=== PATIENT | male | born 2000 | race Caucasian/White ===

== ENCOUNTER 2019-10-05 13:53 | Emergency (ER) | payer OTHER, SELFPAY ==
[2019-10-05 13:58] VITALS: BP 130/84; PULSE 72; TEMP 36.4; O2SAT 100
--- NOTE | 2019-10-05 14:10 | ED.GENADUL_ITS ---
Discharge Plan Disposition Patient Disposition: HOME Condition: Stable Discharge Details Chief Complaint: Orthopedic Clinical Impression: Acute foreign body of right lower leg Primary Care Provider: Neal Blevins ED Provider: Andrei Dunn Home Meds and New Rx's Prescriptions: New amoxicillin-pot clavulanate [Augmentin] 875-125 mg tablet 1 tab PO BID Qty: 8 RF: 0 Discharge Instructions Additional Instructions: if you are having limited range of motion of the knee in a week call orthopedics for an appointment if you have spreading redness, severe worsening pain or yellow/white discharge from the wound return to the emergency department you can have 1000mg tylenol and 600mg ibuprofen every 6 hours for pain as needed Medical Decision Making 19 yo male was using a nail gun at home when he accidentally got a nail stuck in his right leg just proximal to the knee and on lateral surface. States it is a 1.5-2 inch nail. Unable to move the knee at all due to pain. Will obtain xray to see where the nail is in regards to bone and reasses. xray confirms nail in the bone. Spoke with Dr. Solorzano who recommended trying to use vice certified medicine aide to get them out. I used 10cc of 2% licodaine around the nail and then use vice certified medicine aide and successfully removed. Spoke with Dr. Solorzano who did not feel ortho f/u needed unless having rom issues with the knee. Will d/c with return precautions Differential Diagnosis Differential Diagnosis: foreign body, fracture Imaging Data Radiologic Study: Attestation: I personally reviewed and interpreted this imaging study as follows: Imaging: X-Ray My impression: foreign body HPI General Mode of arrival: ambulatory . Date/Time Provider Initiated Documentation: 10/05/19 13:54 . Limitations to Documentation: no limitations . Information obtained by: patient . History of Present Illness 19 year old M presents to the emergency department with the chief complaint of nail in right leg, described as moderate, Quality is described as aching, and it has been constant. No relieving factors improve symptom(s), No exacerbating factors reported . Patient did receive the following treatments prior to arrival, none Related Data Home Medications Medication Instructions Recorded Confirmed amoxicillin-pot clavulanate 1 tab PO BID #8 tab 10/05/19 [Augmentin] Previous Rx's Medication Instructions Recorded amoxicillin-pot clavulanate 1 tab PO BID #8 tab 10/05/19 [Augmentin] Allergies Allergy/AdvReac Type Severity Reaction Status Date / Time No Known Allergies Allergy Unverified 10/05/19 14:04 General Stated Complaint: Orthopedic ANTONIO: 3 Review of Systems All systems reviewed & are unremarkable except as noted in HPI and below Constitutional Constitutional: Denies chills, Denies fever(s) and Denies weakness Cardiovascular Cardiovascular: Denies chest pain and Denies dyspnea Respiratory Respiratory: Denies cough and Denies dyspnea Gastrointestinal Gastrointestinal: Denies abdominal pain, Denies nausea and Denies vomiting Musculoskeletal Musculoskeletal: Denies joint swelling Neurologic Neurologic: Denies weakness Psychiatric Psychiatric: Denies depression PFSH Family History Mother No problems noted. Father No problems noted. Brother No problems noted. Grandfather Myocardial infarction paternal Grandmother Myocardial infarction maternal gm Social History Smoking/Tobacco Use Status: Never Drug use: Never Do you feel safe at home: Yes Exam Const General: no acute distress Orientation: alert HENMT Head: normal to inspection Ears: external ears normal General nose exam: external nose normal Mouth: moist mucous membranes Eyes General: appearance normal, both eyes and all related structures Neck Neck: normal visual inspection Resp Effort & Inspection: normal respiratory effort and able to speak in complete sentences Cardio Rate: regular rate Skin General skin exam: no rashes or lesions noted Neuro General: alert and oriented x3 Extrem General: normal capillary refill Psych Mental Status: mental status grossly normal Course Vital Signs Vital signs: Vital Signs Temperature 36.4 C L 10/05/19 13:58 Pulse 72 10/05/19 13:58 Blood Pressure 130/84 10/05/19 13:58 Pulse Oximetry 100 10/05/19 13:58 Temperature 36.4 C L 10/05/19 13:58 Temperature Source Skin 10/05/19 13:58 Pulse 72 10/05/19 13:58 Respiratory Effort 10/05/19 14:03 Blood Pressure 130/84 10/05/19 13:58 Blood Pressure Position Sitting 10/05/19 13:58 Pulse Oximetry 100 10/05/19 13:58 Oxygen Delivery Method Room Air 10/05/19 13:58 Oxygen Flow Rate 0 10/05/19 13:58 Pain Level 2 10/05/19 13:58
--- NOTE | 2019-10-05 15:10 | DI.RAD_ITS ---
EXAM: XR KNEE RT 3V AP,LAT,EVELYNE INDICATION: nail in leg. COMPARISON: No exams were available for comparison TECHNIQUE: 2D digital imaging was performed. FINDINGS: A nail is seen extending into the lateral metaphyseal region of the distal femur. No fracture or mary nt effusion is seen. The joint spaces are well maintained. IMPRESSION: Nail is seen in the distal femoral metaphysis. DATA REPOSITORY: RADIATION DOSE DELIVERED:
[2019-10-05] MEDS: Lidocaine 2% Multi-Dose 20 ML VIAL IJ (15:32)
[2019-10-05 16:01] VITALS: BP 130/84; PULSE 72; TEMP 36.4; O2SAT 100
== END 2019-10-05 16:00 | disposition home or self-care (01) ==
LOC: ER 17:37
PROVIDERS: Emergency Provider Emergency Medicine; PCP Family Medicine
DX: S80.851A Superficial foreign body, right lower leg, initial encounter (principal); W45.0XXA Nail entering through skin, initial encounter
CPT/HCPCS: 73562; 90471; 99284; 99283; J3490

== ENCOUNTER 2019-12-30 20:51 | Emergency (ER) | payer OTHER, SELFPAY ==
[2019-12-30 20:56] VITALS: BP 160/77; PULSE 100; RESP 16; TEMP 37; O2SAT 96
[2019-12-30 21:01] VITALS: BP 136/75
--- NOTE | 2019-12-30 21:15 | ED.GENADUL_ITS ---
Discharge Plan Disposition Patient Disposition: HOME Condition: Good Discharge Details Chief Complaint: Laceration Clinical Impression: Laceration of left hand Primary Care Provider: Neal Blevins ED Provider: Dru Baldwin Home Meds and New Rx's Prescriptions: No Action No Known Home Meds RF: 0 Discharge Instructions Instructions: Care For Your Stitches (ED), Laceration (ED) Additional Instructions: Please leave the dressing on for 24 hours, then you may remove and begin cleaning the wound at least twice a day with soap and water. Continue to apply antibiotic ointment. Do not directly soak the area. Watch for any signs of infection and return if any increasing redness, swelling, pain, drainage. Your sutures should come out in the next 7 to 10 days. If you notice any worsening of your symptoms, or any new symptoms such as vomiting, diarrhea, fever, chills, shortness of breath, chest pain, numbness, weakness, or fainting , please return immediately to the emergency department for reevaluation. Please follow up with your primary care provider as soon as possible for reassessment and reevaluation. As always, it was a pleasure participating in your medical care today. Referrals: Neal Blevins. [Primary Care Provider] - Medical Decision Making 19-year-old male who is right-hand dominant presents with a laceration to his left hand that he got when he was using a brand-new hand saw. Nonelectrical. Patient states that he slipped, and cut the dorsal aspect of his hand. He denies any associated numbness tingling or weakness. He is not on any blood thinners. He states that he wanted to use glue but his mother who is a pharmacist recommended against that noted, and to get it evaluated. Patient has no other complaints at this time. No other modifying factors, tetanus is updated within the last year secondary to another musculoskeletal laceration injury. Exam demonstrates a 5 cm linear laceration with dermal and epidermal involvement no significant subcutaneous involvement involving the tendons. A layer of connective tissue is still present between the skin and the tendons. No evidence of deep laceration. Normal neurovascular exam, normal flexion and extension strength, 5 simple interrupted 4-0 Ethilon sutures were placed, good wound edge approximation noted. Patient tolerated procedure well. Patient will be discharged with close follow-up. Discussed red flags which to return. I have extensively reviewed the treatment plan and discharge instructions with the patient. I have addressed all patient concerns at this time. The patient was made aware of what symptoms to monitor for that would warrant a return to the emergency department. Discussed the plan with the patient, they demonstrate verbal understanding and agreement with our assessment and plan at this time. HPI General Date/Time Provider Initiated Documentation: 12/30/19 20:52 . HPI Narrative: 19-year-old male who is right-hand dominant presents with a laceration to his left hand that he got when he was using a brand-new hand saw. Nonelectrical. Patient states that he slipped, and cut the dorsal aspect of his hand. He denies any associated numbness tingling or weakness. He is not on any blood thinners. He states that he wanted to use glue but his mother who is a pharmacist recommended against that noted, and to get it evaluated. Patient has no other complaints at this time. No other modifying factors, tetanus is updated within the last year secondary to another musculoskeletal laceration injury. Related Data Home Medications Medication Instructions Recorded Confirmed Unknown [No Known Home Meds] 12/30/19 12/30/19 Allergies Allergy/AdvReac Type Severity Reaction Status Date / Time No Known Allergies Allergy Unverified 12/30/19 20:59 General Stated Complaint: Laceration ANTONIO: 4 Review of Systems All systems reviewed & are unremarkable except as noted in HPI and below PFSH Medical History No acute medical problems (Acute) Family History Mother No problems noted. Father No problems noted. Brother No problems noted. Grandfather Myocardial infarction paternal Grandmother Myocardial infarction maternal Social History Smoking/Tobacco Use Status: Current every day Tobacco Type: smokeless tobacco Alcohol Intake: never Drug use: Never Substance use type: does not use Do you feel safe at home: Yes Do you feel safe in your relationship?: Yes Exam Narrative Exam Narrative: 1.Const: Well-nourished, Well-developed, appearing stated age 2.Eyes: PERRL, no conjunctival injection, and symmetrical lids. 3.ENT: Atraumatic external nose and ears. Moist MM. Neck: Symmetric, trachea midline, No thyromegaly. 4.CVS: +S1/S2, No murmurs or gallops. Peripheral pulses 2+ and equal in all extremities. Brisk capillary refill in all extremities. 5.RESP: Unlabored respiratory effort. Clear to auscultation bilaterally. No wheezes rales or rhonchi 6.GI: Soft, Nontender/Nondistended, No hepatosplenomegaly. No guarding or rebound. 7.MSK: Normocephalic/Atraumatic, Extremities w/o deformity or ttp No cyanosis or clubbing, Normal movement of all extremities. Left hand: Symmetrically palpable radial and ulnar pulses. Capillary refill less than 2 seconds to all digits. Intact sensation to light touch of the radial, median and ulnar nerves demonstrated by testing in the dorsal web space of the thumb, the distal palmar aspect of the index finger, and the lateral surface of the fifth finger. 2 point discrimination intact to 5mm (up to 6mm can be normal in digits 3-5) of discrimination in the affected digit. Intact motor function of the radial, median and ulnar nerves demonstrated by strength of extension of the isolated distal joint of the index finger, hand night monitor, and spreading of the 2nd through 5th digits. Intact recurrent median nerve as demonstrated by ability to move thumb fully through opposition, abduction and flexion. No snuffbox tenderness. 8.Skin: Warm, Dry. 5 cm laceration present over the dorsal aspect of the left hand. Linear laceration, extending from the mid center of the hand out laterally. Dermis and epidermis are lacerated, however subcutaneous layer appears intact. No evidence of tendon involvement. Minimal active oozing of blood. Patient demonstrates good neurovascular exam and strength exam distal to the injury site. 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 Sensation grossly intact, no focal neurologic deficits. 10.Psych: (AAO) x3. Appropriate mood and affect Course Vital Signs Vital signs: Vital Signs Temperature 37.0 C 12/30/19 20:56 Pulse 100 H 12/30/19 20:56 Respiratory Rate 16 12/30/19 20:56 Blood Pressure 160/77 H 12/30/19 20:56 Pulse Oximetry 96 12/30/19 20:56 Temperature 37.0 C 12/30/19 20:56 Temperature Source Skin 12/30/19 20:56 Pulse 100 H 12/30/19 20:56 Respiratory Rate 16 12/30/19 20:56 Respiratory Effort Non-Labored 12/30/19 20:59 Blood Pressure 136/75 12/30/19 21:01 Pulse Oximetry 96 12/30/19 20:56 Pain Level 0 12/30/19 20:56 Procedures Laceration Laceration 1: Site: hand Side (If applicable): left Size (cm): 5 Description: linear Depth: simple, single layer Local Anesthetic: Lidocaine 1% Amount of anesthesia used (mL): 5 Pre-repair: wound explored, irrigated extensively and deep structures intact Skin layer closed with: nylon Size (cm): 4-0 Number of sutures: 5 Technique: simple, interrupted
== END 2019-12-30 21:25 | disposition home or self-care (01) ==
LOC: ER 21:24
PROVIDERS: Emergency Provider Student in an Organized Health Care Education/Training Program; PCP Family Medicine
DX: S61.412A Laceration without foreign body of left hand, initial encounter (principal); W27.0XXA Contact with workbench tool, initial encounter
CPT/HCPCS: 12002

== ENCOUNTER 2021-03-07 09:46 | Emergency (ER) | payer OTHER, SELFPAY ==
[2021-03-07 09:50] VITALS: BP 156/64; PULSE 65; RESP 16; TEMP 37; O2SAT 97
--- NOTE | 2021-03-07 09:55 | ED.GENADUL_ITS ---
Discharge Plan Disposition Patient Disposition: HOME Condition: Stable Discharge Details Clinical Impression: Otitis externa Primary Care Provider: Neal Blevins ED Provider: Emma Mclaughlin Home Meds and New Rx's Prescriptions: New Cipro HC 0.2-1 % drops,suspension 3 drp otic (ear) BID 7 Days Qty: 10 RF: 0 Continued amoxicillin 875 mg tablet 875 mg PO BID Qty: 14 RF: 0 Discharge Instructions Instructions: Otitis Externa (ED) Additional Instructions: Your exam is most concerning for an external ear infection. Please encourage hydration. You may continue with Tylenol and ibuprofen as needed for discomfort. Please instill 3 drops into the left ear twice per day for the next 7 days of the prescribed medication. When you put these in, please try to keep the left ear up for approximately 10 to 15 minutes after instilling the drops. If you develop fever/chills, increased pain or other new/worsening symptoms please seek care urgently once again. Otherwise, please follow-up with your primary care in 1-2 week for reevaluation. Referrals: Neal Blevins. [Primary Care Provider] - Discharge Data Discharge Date/Time-TO BE ENTERED AT DEPARTURE: 03/07/21 10:07 Medical Decision Making Patient is a pleasant 21 year old male presenting today with c/c of left ear pain. States that it started more mildly a week ago. He was seen for routine care by his PCP on Tuesday. Physician noted findings concerning of rpossible otitis media. Following day, he began amoxicillin. Despite this, he states his hearing has diminished and discomfort has increased. REports it feels swollen. No swimming recently. Deneis fevers/chills, PIERCE, neck pain. On exam, patient appears nontoxic. His left external auditory canal is swollen and erythematous with an exudate. Consistent with otitis externa. Unable to completely visualize TM. What is visualized appears normal. No pain over mastoid process. Advised otitis externa. Will start on abx drops iwth steroids. Discussed how to apply. Advised on return precautions. Tylenol/ibuprofen as needed for idscomfort. Advised reevaluation with PCP in the next 1-2 weeks for reevaluation. All of his quesitons and concerns were addressed, he is in agreement with this plan. HPI General Mode of arrival: ambulatory . Date/Time Provider Initiated Documentation: 03/07/21 09:55 . Limitations to Documentation: no limitations . Information obtained by: patient and RN notes reviewed . History of Present Illness 21 year old M presents to the emergency department with the chief complaint of left ear discomfort, described as moderate, with intensity rated at 5. Quality is described as aching, and is localized to the face (ear). Patient reports no radiation. Patient started experiencing this day(s) and it has been constant. No relieving factors improve symptom(s), No exacerbating factors reported . Patient notes no other symptoms.; denies fever/chills. Patient did receive the following treatments prior to arrival, other (amoxicillin) Related Data Home Medications Medication Instructions Recorded Confirmed amoxicillin 875 mg tablet 875 mg PO BID #14 tab 03/05/21 03/07/21 ciprofloxacin-hydrocortisone 3 drp OTIC (EAR) BID 7 Days #10 ml 03/07/21 [Cipro HC] Previous Rx's Medication Instructions Recorded amoxicillin 875 mg tablet 875 mg PO BID #14 tab 03/05/21 ciprofloxacin-hydrocortisone 3 drp OTIC (EAR) BID 7 Days #10 ml 03/07/21 [Cipro HC] Allergies Allergy/AdvReac Type Severity Reaction Status Date / Time No Known Allergies Allergy Unverified 03/07/21 09:55 General Stated Complaint: EarProblem ANTONIO: 5 Review of Systems Constitutional Constitutional: Reports as per HPI, Denies chills, Denies fever(s) and Denies headache(s) Eyes Eyes: Reports as per HPI, Denies eye discharge and Denies irritation ENT Ears, Nose, Mouth, and Throat: Reports as per HPI and Denies headache(s) Cardiovascular Cardiovascular: Reports as per HPI, Denies chest pain and Denies dyspnea Respiratory Respiratory: Reports as per HPI and Denies dyspnea Gastrointestinal Gastrointestinal: Reports as per HPI, Denies abdominal pain, Denies change in bowel habits, Denies nausea and Denies vomiting Integumentary/Breasts Skin/Breast: Reports as per HPI and Denies rash Neurologic Neurologic: Reports as per HPI and Denies headache(s) [facility] Medical History (Updated 03/07/21 @ 09:57 by YURIDIA Sims) No acute medical problems Family History Mother No problems noted. Father No problems noted. Brother No problems noted. Grandfather Myocardial infarction paternal Grandmother Myocardial infarction maternal gm Social History Smoking/Tobacco Use Status: Current every day Tobacco Type: smokeless tobacco Smokeless tobacco user: chewing tobacco Quit status: not considering quitting Smoking risk assessment performed?: Yes Alcohol Intake: current Alcohol Intake frequency: a few times a week Drug use: Never Substance use type: does not use Caregiver/Support person: No Household members: family Housing: house Communication Needs: None Do you need help understanding health information?: Never Pets and animals: Yes Pets and animals: dog(s) Sexually active: Yes Do you think of yourself as: straight/heterosexual Current gender identity: male What is your relationship status?: never Panel score (0-1 are the most socially isolated patients): 0 What type of physical activity do you participate in: other Details: work Frequency: daily Cristela/Worship: Anabaptism Seatbelt use: always Drive intox or ride w/intox goat driver: No Do you feel safe at home: Yes Do you feel safe in your relationship?: Yes Exam Const General: cooperative, healthy appearing, comfortable, no acute distress, well developed and well groomed Nutritional Appearance: average body habitus and well nourished Orientation: alert and awake [facility] Head: normal to inspection, normocephalic and atraumatic Ears: hearing grossly normal bilaterally, external ears abnormal (left canal is swollen and erythematous) and TM's abnormal bilaterally (normal on right, only partially visualized on left) General nose exam: external nose normal and nares normal Face and sinus: normal facial exam, sinuses nontender and face symmetric Mouth: oral mucosae normal, lip normal, tongue normal, oropharynx normal and moist mucous membranes Teeth and gingiva: dentition normal Throat: posterior oropharynx normal, tonsils normal and uvula midline Eyes General: appearance normal, both eyes and all related structures Neck Neck: normal visual inspection, full ROM, no lymphadenopathy and no meningeal signs Resp Effort & Inspection: normal respiratory effort, able to speak in complete sentences and no respiratory distress Auscultation: clear to auscultation bilaterally, no rales, no rhonchi and no wheezes Cardio Rate: regular rate Rhythm: regular rhythm Heart Sounds: S1 normal and S2 normal Skin General skin exam: no rashes or lesions noted Neuro General: patient alert and patient awake Cognition: normal cognition Speech: speech normal Gait: normal gait Psych Appearance: grossly normal and well kempt Mental Status: mental status grossly normal Speech and Movement: speech and movement normal Course Vital Signs Vital signs: Vital Signs Temperature 37 C 03/07/21 09:50 Pulse 65 03/07/21 09:50 Respiratory Rate 16 03/07/21 09:50 Blood Pressure 156/64 H 03/07/21 09:50 Pulse Oximetry 97 03/07/21 09:50 Temperature 37 C 03/07/21 09:50 Temperature Source Temporal Artery Scan 03/07/21 09:50 Pulse 65 03/07/21 09:50 Respiratory Rate 16 03/07/21 09:50 Blood Pressure 156/64 H 03/07/21 09:50 Blood Pressure Position Sitting 03/07/21 09:50 Pulse Oximetry 97 03/07/21 09:50 Oxygen Delivery Method Room Air 03/07/21 09:50 Oxygen Flow Rate 0 03/07/21 09:50 Pain Level 5 03/07/21 09:50
== END 2021-03-07 10:07 | disposition home or self-care (01) ==
LOC: ER 10:55
PROVIDERS: Emergency Provider Physician Assistant; PCP Family Medicine
DX: H60.392 Other infective otitis externa, left ear (principal)
CPT/HCPCS: 99283

== ENCOUNTER 2023-10-05 08:26 | Emergency (ER) | payer OTHER, SELFPAY ==
[2023-10-05] VITALS (17 sets, daily range): BP systolic 138–187; BP diastolic 75–96; PULSE 58–88; RESP 20–22; TEMP 36.4–37.1; O2SAT 96–99
--- NOTE | 2023-10-05 08:44 | ED.GENADUL_ITS ---
Discharge Plan Disposition Patient Disposition: Home Discharge Details Clinical Impression: Gastritis Primary Care Provider: Neal Blevins ED Provider: Jyoti Ayala Home Meds and New Rx's Prescriptions: New omeprazole 40 mg capsule,delayed release(DR/EC) 40 mg PO DAILY Qty: 30 0RF Discharge Instructions Instructions: Gastritis (ED) Additional Instructions: Take omeprazole daily. You may still take coating medication such as Maalox or Mylanta. You may also take Tums. I recommend that you follow-up with GI as you would probably benefit from endoscopy. If you develop fevers, significant pain in your abdomen especially in the right lower quadrant, please return for reevaluation. Referrals: Neal Blevins MD [Primary Care Provider] - 3 days Discharge Data Discharge Physician: Jyoti Ayala [facility] General Date/Time Provider Initiated Documentation: 10/05/23 08:29 . HPI Narrative: 23-year-old male presents for evaluation of nausea. Patient states for the last month he has been having some intermittent nausea. He states that it feels like a hunger pain. He has not had any vomiting. He is able to tolerate p.o. He has not had any weight loss. Denies any diarrhea or constipation. No urinary difficulty. No fevers or chills. No cough or cold. He states that his dentist recently told him that his blood pressure was elevated. He is supposed to follow-up with primary care but has not yet done so. He denies any chest pain or shortness of breath. He has tried Tums at home. He does not take any other medications for reflux. He denies any burning sensation or sour taste in his mouth. He did take a Dramamine today because he was going on a road trip. Related Data Home Medications Medication Instructions Recorded Confirmed omeprazole 40 mg capsule,delayed 40 mg PO DAILY #30 caps 10/05/23 release Previous Rx's Medication Instructions Recorded omeprazole 40 mg capsule,delayed 40 mg PO DAILY #30 caps 10/05/23 release Allergies Allergy/AdvReac Type Severity Reaction Status Date / Time No Known Allergies Allergy Unverified 10/05/23 08:44 General Stated Complaint: Nausea/Vomit/Diar ANTONIO: 4 Review of Systems Narrative: Remainder of review of systems otherwise negative except as in the HPI x 10. Exam Narrative Exam Narrative: General: non-toxic, no respiratory distress, comfortable HEENT: normocephalic, atraumatic, lids and lashes normal, PERRL, EOMI, anicteric sclera, no conjunctival injection, moist oral mucosa Card: regular rate and rhythm, S1S2, no murmurs, rubs, or gallops Lungs: good air entry, clear to auscultation bilaterally. no wheezes, rales, rhonchi, or retractions Abd: soft, non-tender, non-distended, normal bowel sounds, no rebound or guarding, no peritoneal signs Musculoskeletal: full range of motion of arms and legs, no tenderness to palpation. no clubbing, cyanosis, or edema Neurologic: appropriate for age, strength normal Psych: alert and oriented Skin: no petechiae, no lesions, warm and dry Course Vital Signs Vital signs: Vital Signs Temperature 36.4 C 10/05/23 08:35 Pulse 84 10/05/23 08:35 Respiratory Rate 20 10/05/23 08:35 Blood Pressure 148/96 H 10/05/23 08:35 Pulse Oximetry 98 10/05/23 08:35 Temperature 36.4 C 10/05/23 08:35 Temperature Source Tympanic 10/05/23 08:35 Pulse 84 10/05/23 08:35 Respiratory Rate 20 10/05/23 08:35 Respiratory Effort Normal 10/05/23 08:38 Blood Pressure 148/96 H 10/05/23 08:35 Blood Pressure Position Sitting 10/05/23 08:35 Pulse Oximetry 98 10/05/23 08:35 Oxygen Delivery Method Room Air 10/05/23 08:35 Oxygen Flow Rate 0 10/05/23 08:35 Pain Level 0 10/05/23 08:35 Medical Decision Making 23-year-old male presents for evaluation of intermittent nausea over the last month. He is not have any abdominal pain. Exam is benign. He is mildly hypertensive. Will check laboratory studies. Laboratory studies unremarkable. Patient was given IV Pepcid and Zofran with some improvement of symptoms. He was able to tolerate some p.o. however he still felt like he was bloated and uncomfortable. He was given a GI cocktail with some more improvement of symptoms. He does state that he feels a little woozy. He did take Dramamine this morning and it is possible that this is a side effect from the Dramamine. On my examination his abdominal exam is totally benign. He does not have an elevated white count. Symptoms have been present for over a month. Do not feel that CT imaging is warranted at this time. I have recommended close follow-up with primary care and possible endoscopy with GI. He will start taking omeprazole daily. He will also take [id number] medications as needed for increased symptoms. Will discharge home. Patient to push fluids and advance diet as tolerated. Patient understands that symptoms may worsen and the testing in the emergency department does not rule out the early stages of a possible surgical condition. Will return to ED for worsening pain, migration of pain to right lower abdomen, high fevers, or intractable vomiting. Quality:SDOH Health Related Social Needs: No Data to Display PFSH All Active Problems (Updated 10/05/23 @ 12:00 by Jyoti Ayala MD) Gastritis (Acute) Otitis externa (Acute) Medical History (Updated 10/05/23 @ 12:00 by Jyoti Ayala MD) No acute medical problems Family History Mother No problems noted. Father No problems noted. Brother No problems noted. Grandfather Myocardial infarction paternal Grandmother Myocardial infarction maternal gm Social History Smoking/Tobacco Use Status: Current every day Tobacco Type: smokeless tobacco Smokeless tobacco user: chewing tobacco Quit status: not considering quitting Smoking risk assessment performed?: Yes Alcohol Intake: current Alcohol Intake frequency: a few times a week Drug use: Never Substance use type: does not use Caregiver/Support person: No Household members: family Housing: house Communication Needs: None Do you need help understanding health information?: Never Pets and animals: Yes Pets and animals: dog(s) Sexually active: Yes Do you think of yourself as: straight/heterosexual Current gender identity: male What is your relationship status?: never Panel score (0-1 are the most socially isolated patients): 0 What type of physical activity do you participate in: other Details: work Frequency: daily Cristela/Faith: Adventism Seatbelt use: always Drive intox or ride w/intox compactor driver: No Do you feel safe at home: Yes Do you feel safe in your relationship?: Yes PAWSS Have you Been Recently Intoxicated or Drunk Within the Last 30 days?: No Have you Ever Experienced Previous Episodes of Alcohol Withdrawal?: No Have you ever Experienced Withdrawal Seizures?: No Have you ever Experienced Delirium Tremens(DT)s?: No Have you ever undergone Alcohol Rehabilitation Treatment (i.e, inpt ot outpatient treatment programs)?: No Have you ever Experienced Blackouts?: No Have you ever Combined Alcohol with other Downers within the last 90 days?: No Have you ever Combined Alcohol with any other Substance of Abuse during the last 90 days?: No Positive Blood Alcohol level on Presentation? [PCS.BAL]: No Evidence of Increased Autonomic Activity (i.e. HR>120, tremor, sweating, agitation, nausea)?: No Result: 0
[2023-10-05 09:04] LABS: Abs Immature Grans 0.01 10^3/uL (0.0-0.06); Absolute Basophil Count 0.07 10^3/uL (0.0-0.2); Absolute Eosinophil Count 0.07 10^3/uL (0.0-0.7); Absolute Lymphocyte Count 2.73 10^3/uL (1.2-3.4); Absolute Monocyte Count 0.55 10^3/uL (0.1-0.8); Absolute Neutrophil Count 4.56 10^3/uL (1.2-6.7); Basophils % 0.9; Eosinophils % 0.9; Immature Grans % 0.1; Lymphocytes % 34.2; MCH 28.7 pg (27.0-33.0); MCV 84 fL (80-95); MPV 9.5 fL (8.0-11.0); Monocytes % 6.9; Platelet Count 254 10^3/uL (130-400); RBC 5.58 10^6/uL (4.36-5.78); RDW 12.7 % (11.8-14.1); RDW-SD 38.5 fL; WBC 7.99 10^3/uL (4.4-10.8)
[2023-10-05 09:26] LABS: ALT 45 U/L (16-63); AST 16 U/L (15-37); Albumin 4.3 g/dL (3.4-5.0); Alkaline Phosphatase 67 U/L (46-116); Anion Gap 10.7 mmol/L (3-11); BUN 14 mg/dL (7-18); Bilirubin, Total 0.4 mg/dL (0.2-1.0); CO2 27.3 mmol/L (21.0-32.0); CREATININE 1.1 mg/dL (0.70-1.30); Calcium 9.2 mg/dL (8.5-10.1); Chloride 103 mmol/L (98-107); Estimated GFR 96.14 (mL/min/1.73m2); Glucose 102 mg/dL (74-106); Lipase 29 U/L (16-77); Magnesium 2.2 mg/dL (1.8-2.4); Potassium 4.3 mmol/L (3.5-5.1); Sodium 141 mmol/L (136-145); Total Protein 7.9 g/dL (6.4-8.2)
[2023-10-05] MEDS: Ondansetron 4 MG/2 ML VIAL IVP (10:09)
[2023-10-05] MEDS: Famotidine 20 MG/2 ML VIAL IVP (10:09)
== END 2023-10-05 12:17 | disposition home or self-care (01) ==
PROVIDERS: Emergency Provider Emergency Medicine Emergency Medical Services; PCP Family Medicine
DX: K29.70 Gastritis, unspecified, without bleeding (principal); F17.220 Nicotine dependence, chewing tobacco, uncomplicated
CPT/HCPCS: 36415; 80053; 83690; 96374; 96375; 99284; 83735; 85025; J2405

== ENCOUNTER 2024-12-25 08:21 | Outpatient (CLI) | payer OTHER, SELFPAY ==
[2024-12-25 12:40] LABS: Calculated LDL 122 mg/dL (<100); Cholesterol 210 mg/dL (<200); Glucose 92 mg/dL (74-106); HDL Cholesterol 42 mg/dL (>or=40); Triglyceride 234 mg/dL (<150)
== END 2024-12-25 08:22 | disposition home or self-care (01) ==
PROVIDERS: PCP Family Medicine; Referring Provider Family Medicine; Visit Provider Family Medicine
DX: E78.5 Hyperlipidemia, unspecified (principal); R73.9 Hyperglycemia, unspecified
CPT/HCPCS: 36415; 80061; 82947